=== PATIENT | male | born 1975 | race Caucasian/White ===

== ENCOUNTER 2017-03-03 05:51 | Day surgery (SDC) | payer OTHER ==
[~2017-03-03] VITALS: Ht 182.9 cm; Wt 76.2 kg
[2017-03-03] MEDS ORDERED: Ketamine 10 mg/mL 20 mL Inj ONE (05:52)
[2017-03-03] MEDS ORDERED: fentaNYL-PF 50 mCg/mL 2 mL Inj ONE (05:52)
[2017-03-03] MEDS ORDERED: Ondansetron 2 mg/mL 2 mL Inj ONE (05:52)
[2017-03-03] MEDS ORDERED: Propofol 10,000 mCg/mL 20 mL Inj ONE (05:52)
[2017-03-03] MEDS ORDERED: Dexamethasone 4 mg/mL Inj ONE (05:52)
[2017-03-03] MEDS: Lactated Ringer's 1,000 ML IV SCH ×2 (05:53→07:27)
[2017-03-03] MEDS ORDERED: MULT-1018 PO (05:58)
[2017-03-03] MEDS ORDERED: CeFAZolin Inj 2 GM in IV Premix 1 EACH IV ONE (06:00)
[2017-03-03 06:17] VITALS: BP 122/79; PULSE 77; RESP 18; O2SAT 96
--- NOTE | 2017-03-03 07:19 | PCM.HPANE ---
Patient Data Surgeon Admitting Provider: Attending Provider:Kalin Parrish DPM Primary Care Physician:Malka Other Provider:Mindy Rahman Anesthesia Reason for Visit Right Foot Sesamoiditits Ht/WT & BMI Height (Feet): 6 Height (Inches): 0.00 Weight (Kilograms): 76.200 Body Mass Index 22.00 Allergies Coded Allergies: No Known Allergies (Unverified , 02/27/17) Past Anesthesia History Anesthesia History: Denies:: Abnormal Airway, Anesthesia Reactions, Difficult Intubation, Fam Anesthesia Reaction, Fam Malignant Hypertherm, Malignant Hyperthermia Diabetes History Hx Diabetes?: No MRSA MRSA: No Medications Home Meds Incl Beta Eliana: No Reported Medications Multivitamin (Multi Vitamin Daily)1 Each Tablet1 Each PO DAILY 30 Days Ref 0 03/03/17 History History of ENT Problems?: No HEENT History: Denies:: Abnormal Airway Difficult Intubation Dysphagia Hearing Problem Sinus Problem TMJ Denture Type: None Teeth Condition: Within Normal Limits Hx of Heart Problems?: No Cardiovascular History: Denies:: Rheumatic Fever Hx of Respiratory Problem?: No Respiratory History: Denies:: Pneumonia Tuberculosis Use of C-PAP Machine Hx Neurologic Problems?: No Neurological History: Denies:: Alzheimer's Disease CVA Dementia Dizziness Headaches Multiple Sclerosis Parkinson's Disease Seizures TIA Hx of GI Problems?: No Hx of Problems?: No Genitourinary History: Denies:: HX of Hemodialysis HX of Peritoneal Dialysis: No Male Hx: Denies:: Prostate Problems Scrotal Mass Testicular Surgery Skin History: Denies:: History Skin Disorders? Pressure Ulcers Hx Musculoskeletal Problems?: Yes Musculoskeletal History: Denies:: Back Injury Degenerative Joint Fibromyalgia Joint Replacement Musculoskeletal Trauma Myasthenia Gravis Osteoarthritis Rheumatoid Arthritis Hx of Psycho/Social Problems?: No Hx Surgeries?: Yes (ankle reconstruction 2003, tonsillectomy) Other History: Positive for:: Hospitalization ( [facility]) Denies:: Cancer Endocrine Disease Thyroid Disease History Blood Transfusions: Denies:: Blood Transfusions Hx Diabetes: No Hx Alcohol Use: YesAlcoholic Drinks Per Day: 4-5 beers a weekHx Substance Use : NoHave You Smoked inLast 12 mo: YesApprox How Many Cigarettes/day: 10 Stop/Bang S-Snoring: Do You Snore Loudly: No T-Tired: feel tired, fatigued: No O-Obsered: Observed not breath: No P-Blood Pressure: treated: Yes B- Body Mass Index > 35 kg/m2: No A- Age over 50: No N- Neck Large Circumference: No G- Gender Male: Yes ALISSA Total Score: 2 Risk Assessment Category Category 1A: Patient has history of documented sleep apnea, and HAS NOT received any narcotic, sedative or anesthesia administration during this stay. Category 1B: Patient has history of documented sleep apnea, and HAS received any narcotic , sedative or anesthesia administration during this stay Category 2: Patient has SUSPECTED Obstructive Sleep Apnea, and HAS received any narcotic , sedative or anesthesia administration during this stay. Category 3: Patient has SUSPECTED Obstructive Sleep Apnea and HAS NOT received narcotic, sedative or anesthesia administration during this stay. Category 4: Outpatient in Procedural Areas with known sleep apnea or who screen positive for High Risk via the STOP/BANG questionnaire. Exam Exam Vital Signs Vital Signs Date Time Temp Pulse Resp B/P Pulse Ox O2 Delivery O2 Flow Rate FiO2 03/03/17 06:17 36.5 77 18 122/79 96 Room Air General Appearance: Alert, Oriented X3, Cooperative, No Acute Distress HEENT/AIRWAY: MP 3 Lungs: Normal Air Movement Heart: Regular Rate/Rhythm Meds/Labs/Diagnostics Admission Meds Current Medications Lactated Ringer's (Lr) 1,000 ml @ 120 mls/hr [id number] IV Last administered on t 05:53; Start 03/03/17 at 05:00; Stop 03/03/17 at 13:19 Plan Impression Patient chart reviewed, patient interviewed and anesthestic plan with risks, benefits, and alternatives discussed, and informed consent obtained. NPO per Anesth. Guidelines: Yes ASA Physical Status: ASA1 Normal Healthy Anesthetic Plan: MAC Bene/Risks/Altern/Consents: Yes HP Complete Prior to Induction: Yes Arvind Frazier MD Mar 03, 2017 07:19
[2017-03-03] MEDS ORDERED: Lactated Ringer's 1,000 ML IV SCH (07:20)
[2017-03-03] MEDS ORDERED: HYDROmorphone 1 mg/mL Inj IVPUSH PRN (07:20)
[2017-03-03] MEDS ORDERED: MetoCLOpramide 5 mg/mL 2 mL Inj IVPUSH PRN (07:20)
[2017-03-03] MEDS ORDERED: Dexamethasone 4 mg/mL Inj IVPUSH PRN (07:20)
[2017-03-03] MEDS ORDERED: EPHEDrine Sulfate 50 mg/mL Inj IVPUSH PRN (07:20)
[2017-03-03] MEDS ORDERED: Phenylephrine 10,000 mCg/mL Inj IVPUSH PRN (07:20)
[2017-03-03] MEDS ORDERED: Lactated Ringer's 500 ML IV PRN (07:20)
[2017-03-03] MEDS ORDERED: Ondansetron 2 mg/mL 2 mL Inj IVPUSH PRN (07:20)
[2017-03-03] MEDS ORDERED: fentaNYL-PF 50 mCg/mL 2 mL Inj IVPUSH PRN (07:20)
[2017-03-03] MEDS ORDERED: Bupivacaine-MPF 0.5% W/EPI 30 mL Inj INFILTRATE ONE (07:36)
[2017-03-03 08:59] VITALS: BP 133/73; PULSE 78; RESP 18; O2SAT 100
--- NOTE | 2017-03-03 09:16 | PCM.PODPO ---
Podiatry Operative Report Date of Service: Mar 03, 2017 Date of Service Mar 03, 2017 Pre Operative Diagnosis Sesamoiditis right fibular sesamoid Post Operative Diagnosis Same as preoperative diagnosis Procedure Fibular sesamoidectomy Surgeon Surgeon: Kalin Parrish DPM Assistants: None Indication for Procedure Chronically painful fibular sesamoid Findings Fragmentation of the fibular sesamoid Details of Procedure Patient was identified in the preoperative holding area preoperative comorbidities and allergies were identified and thoroughly discussed. The patient was transported into the operating room and placed on the operating room table in the normal supine position. The patient was then prepped and draped in the normal aseptic technique Mac anesthesia was induced by the anesthesia service a preoperative block consisting of 9 mL half percent Marcaine plain was given to the midshaft of the first metatarsal and first metatarsal phalangeal joint. A #15 blade was then utilized to make a 3 cm incision over the distal aspect of the first intermetatarsal space once that initially her skin all subcutaneous neurovascular structures were identified and retracted out of the surgical field. Blunt dissection was carried with a Metzenbaum scissor down to identify the conjoined tendon of the adductor hallucis. The adductor hallucis tendon was identified and incised insertion was noted into the lateral aspect of the first metatarsal head with limited insertion extending toward the base of the first toe. A #15 blade was used to make a linear incision slightly proximal to the insertion of the adductor hallucis tendon blunt dissection was continued plantarly with a Ramer elevator and a Metzenbaum scissor and the fibular sesamoid was clearly identified. The Ramer elevator was utilized to help dissect through the attachment of the inter- sesamoidal ligament. Sharp dissection was carried out around the borders of the fibular sesamoid. A rongeur was then utilized to attempt removal of the sesamoid in whole. The fibular sesamoid was found to be fragmented upon attempted excision as it fractured into multiple pieces. The rongeur and sharp dissection with a #15 blade were then utilized to debride and remove the remainder of the fibular sesamoid fragments. The flexor hallucis longus tendon was visualized and found to be intact. This wound was ankle was a flush large amounts of normal saline. Intraoperative mini C-arm x-ray was utilized to verify complete excision of the fibular sesamoid and direct visualization did not reveal any remaining fracture fragments. Deep closure was performed utilizing number 3. 0 Vicryl and skin closure was performed utilizing number 3. 0 Prolene. Grafts, Implants: None Complications There were no periprocedural complications identified. Condition Stable Anesthetic Administered: GA Catheters: None Output, Estimated Blood Loss: 10 Blood Admin during surgery: No Surgical Cast or Splint: None Surgical Specimen Removed: No Specimen sent to Pathology: No Post Operative Plan Advance diet as tolerated Ice and elevate right lower extremity Partial weightbearing to right heel with limited activity follow-up in 1 week Discharged to home when stable Kalin Parrish DPM Mar 03, 2017 09:16
[2017-03-03 09:26] VITALS: BP 129/87; PULSE 74; RESP 18; O2SAT 99
--- NOTE | 2017-03-03 10:32 | PCM.ANEP1 ---
Post Anesthesia PACU Phase 1 Assessment Vital Signs Vital Signs Date Time Temp Pulse Resp B/P Pulse Ox O2 Delivery O2 Flow Rate FiO2 03/03/17 09:26 36.3 74 18 129/87 99 Room Air 03/03/17 08:59 36.3 78 18 133/73 100 Room Air 03/03/17 06:17 36.5 77 18 122/79 96 Room Air Anesthetic Administered: GA Level of Alertness: Awake, talking Pain: No Nausea or Vomiting: No CV Function & Hydration Stable: Yes Airway Device: None Oxygen Delivery: Room Air Lungs: Normal Air Movement PACU Phase 2 Assessment Complications: No Follow up Care: N/A Patient Instructions Provided: N/A Arvind Frazier MD Mar 03, 2017 10:31
== END 2017-03-03 23:59 | disposition home or self-care (01) ==
LOC: SAS 05:51
PROVIDERS: ATTEND Podiatrist Foot & Ankle Surgery
DX: M25.871 Other specified joint disorders, right ankle and foot (principal); M79.671 Pain in right foot; F17.210 Nicotine dependence, cigarettes, uncomplicated
CPT/HCPCS: 28315; J0690; J1100; J1885; J2250; J2405; J2704; J3010; J7120